=== PATIENT | female | born 1960 | race Caucasian/White ===

== ENCOUNTER 2020-12-11 15:24 | Emergency (ER) | payer OTHER, SELFPAY ==
--- NOTE | 2020-12-11 15:28 | ED.FEMALEGU ---
HPI - Female Genitourinary General Chief complaint: Urogenital-Female Stated complaint: burning urination Time Seen by Provider: 12/11/20 15:28 Source: patient and RN notes reviewed History of Present Illness HPI Narrative: Patient is a 60-year-old female who presents the urgent care with complaints of urinary frequency, urinary urgency, mild suprapubic pressure, and dysuria. Patient states symptoms started yesterday after being diagnosed with 2 UTIs in the last few months. Patient states that she was on Cipro for 3 days for the first UTI and Cipro for 5 days approximately 4-week ago for the second UTI. Patient states that she had a bout of urinary tract infections many years ago and had a complete work-up from the urologist without any findings. Patient currently denies of any vomiting, abdominal pain, low back pain or blood in the urine. Patient states that she has been taking Pyridium with her last dose being at 10 AM. No other acute complaints. No acute distress noted. Patient aware of the plan of care. Some parts of this dictation were generated by voice recognition software and may contain typographical and/or grammatical inaccuracies. Related Data Allergies Allergy/AdvReac Type Severity Reaction Status Date / Time antihistamines AdvReac Mild Other Uncoded 12/11/20 15:39 Review of Systems Review of Systems: Narrative: CONSTITUTIONAL: Denies fever, chills, or sweats. EYES: Denies visual changes, redness, or discharge. ENT: Denies rhinorrhea, congestion, sore throat, or otalgia. CARDIOVASCULAR: Denies chest pain, palpitations, or edema. RESPIRATORY: Denies cough or dyspnea. GASTROINTESTINAL: Reports of intermittent nausea without vomiting, diarrhea or abdominal pain GENITOURINARY: Reports of dysuria, frequency, urgency, mild suprapubic pressure SKIN: Denies rash or itching. MUSCULOSKELETAL: Denies back pain, joint pain, or myalgia. NEUROLOGIC: Denies headache, numbness, or weakness. All other systems reviewed are negative, except as documented in HPI. PMFSH Comments At the time of my signature, I reviewed and agree with the nursing past medical, surgical, social, and family history. There is no relevant family history pertinent to the patient complaint. Exam Narrative: Exam Narrative: GENERAL: This is a well-nourished, well-developed patient, in no apparent distress. HEAD: normocephalic, atraumatic. EYES: PERRL. Sclera clear/white. Vision is grossly intact. EARS: External ears normal NOSE: External nose normal with no obvious nasal discharge, nares without redness, no rhinorrhea. THROAT: Mucous membranes moist NECK: Neck supple GASTROINTESTINAL: Abdomen soft, mild suprapubic tenderness, nondistended. SKIN: warm, intact with no suspicious lesions or rash, good texture and turgor. NEURO: awake, alert, and oriented to person, place and time. There were no obvious focal neurologic abnormalities. EXTREMITIES: No clubbing, cyanosis, or edema. BACK: Negative bilateral CVA tenderness Course Vital Signs Vital signs: Vital Signs Temperature 96.8 F L 12/11/20 15:33 Pulse Rate 73 12/11/20 15:33 Respiratory Rate 16 12/11/20 15:33 Blood Pressure 126/77 12/11/20 15:33 Pulse Oximetry 100 12/11/20 15:33 Temperature 96.8 F L 12/11/20 15:33 Pulse Rate 73 12/11/20 15:33 Respiratory Rate 16 12/11/20 15:33 Blood Pressure 126/77 12/11/20 15:33 Pulse Oximetry 100 12/11/20 15:33 Reviewed MDM - Female Genitourinary MDM Narrative Medical decision making narrative: Reviewed lab results with the patient. She is aware that urine analysis is indicative of a urinary tract infection. Advised the patient to complete oral antibiotic regimen as prescribed. Be sure to eat and drink with the medication. Increase water intake and avoid sugary and caffeinated drinks. Be sure to empty your bladder whenever you have the urge. Do not soak in soapy baths. Use Pyridium as needed for bladder spasms. If you develop an
[2020-12-11 15:33] VITALS: BP 126/77; PULSE 73; RESP 16; TEMP 36; O2SAT 100
== END 2020-12-11 15:56 | disposition home or self-care (01) ==
PROVIDERS: Emergency Provider Nurse Practitioner Family
DX: N39.0 Urinary tract infection, site not specified (principal); I10 Essential (primary) hypertension; E05.90 Thyrotoxicosis, unspecified without thyrotoxic crisis or storm
CPT/HCPCS: 81003; 87077; 87086; 87088; 87186; 99213; G0463